=== PATIENT | male | born 1970 | race Caucasian/White ===

== ENCOUNTER 2016-10-16 16:11 | Emergency (ER) | payer BC ==
[~2016-10-16] VITALS: Ht 167.6 cm; Wt 81.6 kg
--- NOTE | 2016-10-16 16:27 | NUR ---
PT TO ER BED 10. PRESENTS W/ RT SHOULDER PAIN X 2 HOURS. OBVIOUS DEFORMITY NOTED. HX OF SHOULDER DISLOCATION. GOWNED AND PLACED ON MONITOR. AWAITING MD BERMAN.
[2016-10-16] MEDS ORDERED: MIDAZOLAM HCL 2 MG/2ML VIAL IV ONE (16:30)
[2016-10-16] MEDS ORDERED: FENTANYL PF 100MCG/2ML AMPUL IV ONE (16:30)
[2016-10-16] MEDS ORDERED: IV NS 0.9% 1,000 ML BAG IV ONE (16:30)
--- NOTE | 2016-10-16 16:30 | NUR ---
DR [facility] FOR EVAL.
[2016-10-16] MEDS ORDERED: IV NS 0.9% 1,000 ML ONE (16:39)
[2016-10-16] MEDS ORDERED: MIDAZOLAM 50 MG/10 ML VIAL ONE (16:39)
[2016-10-16] MEDS ORDERED: FENTANYL PF 100MCG/2ML AMPUL ONE (16:39)
[2016-10-16] MEDS ORDERED: IV SET PRIMARY 1 EA INFUS.SET MC ONE ×2 (16:39→16:45)
--- NOTE | 2016-10-16 16:42 | NUR ---
CONSENT SIGNED FOR SHOULDER REDUCTION
--- NOTE | 2016-10-16 16:54 | NUR ---
DR HERRERA, RT [facility]ER[facility] LEAL AT BEDSIDE FOR REDUCTION OF RIGHT SHOULDER VIA MODERATE SEDATION.
--- NOTE | 2016-10-16 17:07 | NUR ---
RADIOLOGY AT BEDSIDE FOR STAT RT SHOULDER XRAY.
--- NOTE | 2016-10-16 18:16 | NUR ---
MELANIE D/C'D. SHOULDER SLING PROVIDED. D/C IN STABLE CONDITION.
[2016-10-16 18:18] VITALS: BP 128/84
== END 2016-10-16 18:19 | disposition home or self-care (01) ==
LOC: ER 16:14
DX: S43.004A Unspecified dislocation of right shoulder joint, initial encounter (principal); Y28.8XXD Contact with other sharp object, undetermined intent, subsequent encounter; Y93.89 Activity, other specified; Y92.89 Other specified places as the place of occurrence of the external cause; Y99.9 Unspecified external cause status
CPT/HCPCS: 73030-TC; A4606; J2250; J3010; J7030; Z7610

== ENCOUNTER 2020-10-15 22:54 | Emergency (ER) | payer BC, OTHER ==
[~2020-10-15] VITALS: Ht 167.6 cm; Wt 81.6 kg
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
[2020-10-15] MEDS ORDERED: ETOMIDATE 2 MG/ML VIAL ONE (23:16)
--- NOTE | 2020-10-15 23:22 | NUR ---
MD, RT, RN AT BEDSIDE FOR R SHOULDER REDUCTION WITH MODERATE SEDATION
[2020-10-15] MEDS ORDERED: ETOMIDATE 2 MG/ML VIAL IV ONE (23:30)
[2020-10-15] MEDS ORDERED: IBUP-1957 PO (23:30)
--- NOTE | 2020-10-15 23:36 | NUR ---
RADIOLOGY AT BEDSIDE FOR XRAY
--- NOTE | 2020-10-16 00:08 | NUR ---
PT AWAKE, AAOX4. MEDICALLY CLEARED FOR DISCHARGE. Patient discharged to home in stable condition. Written and verbal after care instructions given. Patient verbalizes understanding of instruction.IV removed. Catheter intact and site benign. Pressure and 4x4 applied to site. No bleeding noted.Pt ambulatory with a steady gait. Pt instructed not to drive, verbalized understanding, leaving with
[2020-10-16 00:16] VITALS: BP 124/79
== END 2020-10-16 00:16 | disposition home or self-care (01) ==
LOC: ER 22:54
DX: S43.084A Other dislocation of right shoulder joint, initial encounter (principal); W01.0XXA Fall on same level from slipping, tripping and stumbling without subsequent striking against object, initial encounter; Y93.89 Activity, other specified; Y92.89 Other specified places as the place of occurrence of the external cause; Y99.8 Other external cause status
CPT/HCPCS: 23650; 73030; 99152; 99285; J3490; G0500

== ENCOUNTER 2022-10-30 10:00 | Emergency (ER) | payer OTHER ==
[~2022-10-30] VITALS: Ht 167.6 cm; Wt 63.5 kg
[~2022-10-30 10:00] MED LIST: IBUP-1957 PO
--- NOTE | 2022-10-30 10:40 | NUR ---
The patient is presented to ER "Right shoulder pain- I think I dislocated it again. Same Hx x6". The patient rates pain 10/10. No s/s poor circulation noted. Will continue to monitor the patient.
[2022-10-30] MEDS ORDERED: ONDANSETRON HCL/PF 4 MG/2 ML VIAL IV ONE (11:00)
[2022-10-30] MEDS ORDERED: FENTANYL PF 100MCG/2ML AMPUL IV ONE ×2 (11:00→12:30)
[2022-10-30] MEDS ORDERED: IV NS 0.9% 1,000 ML IV ONE (11:00)
[2022-10-30] MEDS ORDERED: FENTANYL PF 100MCG/2ML AMPUL ONE ×2 (11:02→11:30)
[2022-10-30] MEDS ORDERED: ONDANSETRON HCL/PF 4 MG/2 ML VIAL ONE (11:03)
[2022-10-30] MEDS ORDERED: PROPOFOL 20 ML IV ONE (11:26)
--- NOTE | 2022-10-30 11:31 | NUR ---
AT BEDSIDE FOR CONSCIOUS SEDATION.
--- NOTE | 2022-10-30 11:35 | NUR ---
PROPOFOL DOSAGE INTERVAL DURING PROCEDURE: 1135 30MG 1136 15MG 1137 15MG 1138 15MG TOTAL 75MG PROPOFOL GIVEN
--- NOTE | 2022-10-30 11:44 | NUR ---
technology engineer at bedside for R shoulder xray post reduction.
[2022-10-30] MEDS ORDERED: IBUP-1955 PO (12:24)
[2022-10-30] MEDS ORDERED: PROPOFOL 1,000 MG/100 ML BOTTLE IV ONE (12:30)
--- NOTE | 2022-10-30 12:39 | NUR ---
Patient discharged to home in stable condition. Written and verbal after care instructions given. Patient verbalizes understanding of instruction. IV removed. Catheter intact and site benign. Pressure and 4x4 applied to site. No bleeding noted.
[2022-10-30 12:41] VITALS: BP 124/88
== END 2022-10-30 12:41 | disposition home or self-care (01) ==
LOC: ER 10:06
DX: M24.411 Recurrent dislocation, right shoulder (principal); X50.9XXA Other and unspecified overexertion or strenuous movements or postures, initial encounter; Y93.89 Activity, other specified; Y92.89 Other specified places as the place of occurrence of the external cause; Y99.8 Other external cause status; Z79.899 Other long term (current) drug therapy
CPT/HCPCS: 99285; 23650; 96374; 96375; 96361; 99152; 73030 ×2; J2704; J3010 ×2; J2405; J7030; G0500